=== PATIENT | male | born 1975 | race Hispanic/Latino ===

== ENCOUNTER 2022-04-07 21:49 | Emergency (ER) | payer OTHER ==
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
[2022-04-07] MEDS ORDERED: NA CHLORIDE 0.9% 1,000 ML ONE (22:47)
[2022-04-07 23:03] LABS: Absolute Lymphocytes (CBC) 0.7 K/uL (0.7-4.9); Hematocrit 42.3 % (39.6-49.0); Lymphocytes % 10.6 % (15.3-44.8); MCV 87.1 fL (80-100); MPV 8.3 fL (7.6-11.3); RBC Red Blood Cell Count 4.85 M/uL (4.33-5.43)
[2022-04-07 23:22] LABS: Potassium 3.6 mmol/L (3.5-5.1)
[2022-04-07] MEDS ORDERED: ACETAMINOPHEN 325 MG TABLET ONE (23:33)
--- NOTE | 2022-04-08 00:21 | ER ---
Nurse's Notes [facility] Name: Benjie Eisenberg Age: 46 yrs Sex: Male : 1975 Arrival Date: 04/07/2022 Time: 21:53 Bed 25 Private MD: Diagnosis: Coronavirus infection, unspecified;Infectious mononucleosis, unspecified without complication;Influenza Presentation: 04/07 22:00 Chief complaint: Sore throat, headache, body aches, and fever since this morning. hb Coronavirus screen: Client presents with at least one sign or symptom that may indicate coronavirus-19. Standard/surgical mask placed on the client. Ebola Screen: No symptoms or risks identified at this time. Risk Assessment: Do you want to hurt yourself or someone else? Patient reports no desire to harm self or others. Onset of symptoms was April 07, 2022. 22:00 Method Of Arrival: Ambulatory hb 22:00 Acuity: ELY 3 hb Historical: - Allergies: 22:02 No Known Allergies; hb - Home Meds: 22:02 None [Active]; hb - PMHx: 22:02 None; hb - PSHx: 22:02 None; hb - Immunization history:: Adult Immunizations up to date. - Social history:: Smoking status: Patient denies any tobacco usage or history of. Screenin:11 Abuse screen: Denies threats or abuse. Nutritional screening: No deficits noted. ja4 Tuberculosis screening: No symptoms or risk factors identified. Fall Risk None identified. IV access (20 points). Assessment: 22:15 General: Appears in no apparent distress. uncomfortable, Behavior is calm, cooperative, ja4 appropriate for age. Pain: Denies pain. Neuro: No deficits noted. EENT: Reports pain in throat when swallowing. Derm: Skin is moist, Skin is flushed, Skin temperature is hot. Vital Signs: 22:00 BP 182 / 102; Pulse 105; Resp 20; Temp 101.8; Pulse Ox 97% on R/A; Weight 106.59 kg; hb Height 5 ft. 8 in. (172.72 cm); Pain 8/10; 23:21 BP 159 / 81; Pulse 86; Resp 18; Temp 102.2; Pulse Ox 99% on R/A; ja4 23:55 Temp 101.8(O); ja4 08/21 00:44 Temp 99.8(O); ja4 04/07 22:00 Body Mass Index 35.73 (106.59 kg, 172.72 cm) hb Tonya Coma Score: 04/07 23:11 Eye Response: spontaneous(4). Verbal Response: oriented(5). Motor Response: obeys ja4 commands(6). Total: 15. ED Course: 21:53 Patient arrived in ED. bp1 22:02 Triage completed. hb 22:02 Arm band placed on. hb 22:04 Per Christine PA is PHCP. [facility] 22:04 Lenard Meyer MD is Attending Physician. [facility] 22:04 Ashutosh Ruth, COLLEEN is Primary Nurse. ja4 22:20 Inserted saline lock: 20 gauge in left antecubital area, using aseptic technique. Blood ja4 collected. 22:36 Lactate Sent. ja4 22:37 Blood Culture Adult (2) Sent. ja4 22:37 CBC with Diff Sent. ja4 22:37 BMP Sent. ja4 22:37 [place] Screen Profile Sent. ja4 22:37 Strep Sent. ja4 22:37 Influenza Screen (a \\T\\ B) Sent. ja4 22:37 SARS-COV-2 RT PCR (Document "Date of Onset" if Symptomatic) Sent. ja4 23:11 Patient has correct armband on for positive identification. Call light in reach. Adult ja4 w/ patient. 23:11 No provider procedures requiring assistance completed. ja4 04/08 00:44 IV discontinued, intact, bleeding controlled, No redness/swelling at site. Pressure ja4 dressing applied. Administered Medications: 04/07 22:37 Drug: NS 0.9% 1000 ml Route: IV; Rate: 1 bolus; Site: left antecubital; ja4 23:26 Drug: Tylenol 650 mg Route: PO; ja4 04/08 00:45 Not Given (forgot to give): Tamiflu (oseltamivir) 75 mg PO once ja4 Medication: 04/07 23:11 VIS not applicable for this client. ja4 Outcome: 04/08 00:20 Discharge ordered by . [facility] 00:44 Discharged to home ambulatory. [facility] 00:44 Condition: stable 00:44 Discharge instructions given to patient, Instructed on discharge instructions, follow up and referral plans. medication usage. 00:46 Patient left the ED. ja4 Signatures: Per Christine PA PA jmm Baxter, Heather, RN Erin Loera Jeremy, RN RN enma
--- NOTE | 2022-04-08 00:22 | EDPHYS ---
Physician Documentation [facility] Name: Benjie Eisenberg Age: 46 yrs Sex: Male : 1975 Arrival Date: 04/07/2022 Time: 21:53 Bed 25 Private MD: ED Physician Lenard Meyer HPI: 04/07 22:13 This 46 yrs old Male presents to ER via Ambulatory with complaints of Fever, jmm High Blood Pressure. 22:13 Onset: The symptoms/episode began/occurred gradually, today. Modifying factors: there jmm are no obvious modifying factors. This is a 46-year-old male with no chronic medical conditions the presents emerged department with complaints of body aches and fatigue beginning today. Patient also complains of elevated blood pressure which she noticed yesterday while at a clinic. Denies cough, vomiting, diarrhea.. Historical: - Allergies: 22:02 No Known Allergies; hb - Home Meds: 22:02 None [Active]; hb - PMHx: 22:02 None; hb - PSHx: 22:02 None; hb - Immunization history:: Adult Immunizations up to date. - Social history:: Smoking status: Patient denies any tobacco usage or history of. ROS: 22:13 Cardiovascular: Negative for chest pain, palpitations, and edema, Respiratory: Negative jmm for shortness of breath, cough, wheezing, and pleuritic chest pain, Abdomen/GI: Negative for abdominal pain, nausea, vomiting, diarrhea, and constipation. 22:13 Constitutional: Positive for body aches, chills, fever. 22:13 All other systems are negative. Exam: 22:13 Constitutional: This is a well developed, well nourished patient who is awake, alert, jmm and in no acute distress. Head/Face: atraumatic. Eyes: EOMI, no conjunctival erythema appreciated ENT: Moist Mucus Membranes Neck: Trachea midline, Supple Chest/axilla: Normal chest wall appearance and motion. Cardiovascular: Regular rate and rhythm. No edema appreciated Respiratory: Normal respirations, no respiratory distress appreciated Abdomen/GI: Non distended Back: Normal ROM Skin: General appearance color normal MS/ Extremity: Moves all extremities, no obvious deformities appreciated, no edema noted to the lower extremities Neuro: Awake and alert Psych: Behavior is normal, Mood is normal, Patient is cooperative and pleasant Vital Signs: 22:00 BP 182 / 102; Pulse 105; Resp 20; Temp 101.8; Pulse Ox 97% on R/A; Weight 106.59 kg; hb Height 5 ft. 8 in. (172.72 cm); Pain 8/10; 23:21 BP 159 / 81; Pulse 86; Resp 18; Temp 102.2; Pulse Ox 99% on R/A; ja4 23:55 Temp 101.8(O); ja4 04/08 00:44 Temp 99.8(O); ja4 04/07 22:00 Body Mass Index 35.73 (106.59 kg, 172.72 cm) hb Tonya Coma Score: 04/07 23:11 Eye Response: spontaneous(4). Verbal Response: oriented(5). Motor Response: obeys ja4 commands(6). Total: 15. MDM: 22:13 Patient medically screened. [facility] 04/08 00:19 Data reviewed: vital signs, nurses notes. Counseling: I had a detailed discussion with [facility] the patient and/or guardian regarding: the historical points, exam findings, and any diagnostic results supporting the discharge/admit diagnosis, lab results, radiology results, the need for outpatient follow up, to return to the emergency department if symptoms worsen or persist or if there are any questions or concerns that arise at home. ED course: Patient is alert nontoxic in appearance in the ED. Most likely due to viral syndrome. Advised follow-up PCP and otherwise given strict return precautions. Patient understood and agrees plan of care.. 04/07 22:14 Order name: SARS-COV-2 RT PCR (Document "Date of Onset" if Symptomatic); Complete Time: [facility] 00:02 04/07 22:14 Order name: Influenza Screen (a \\T\\ B); Complete Time: 00:02 [facility] 04/07 22:14 Order name: Strep; Complete Time: 00:02 [facility] 04/07 22:14 Order name: [place] Screen Profile; Complete Time: 00:06 [facility] 04/07 22:15 Order name: CBC with Diff; Complete Time: 23:11 [facility] 04/07 22:15 Order name: BMP; Complete Time: 23:23 [facility] 04/07 22:14 Order name: Saline Lock; Complete Time: 22:37 [facility] 04/07 22:15 Order name: Blood Culture Adult (2) [facility] 04/07 22:15 Order name: Lactate; Complete Time: 23:37 [facility] 04/07 23:53 Order name: Throat Culture EDMS Administered Medications: 04/07 22:37 Drug: NS 0.9% 1000 ml Route: IV; Rate: 1 bolus; Site: left antecubital; ja4 23:26 Drug: Tylenol 650 mg Route: PO; ja4 04/08 00:45 Not Given (forgot to give): Tamiflu (oseltamivir) 75 mg PO once ja4 Disposition: 02:35 Co-signature as Attending Physician, Lenard Meyer MD I agree with the assessment and kdr plan of care. Disposition Summary: 04/08/22 00:20 Discharge Ordered Location: Home [facility] Condition: Stable [facility] Diagnosis - Coronavirus infection, unspecified jmm - Infectious mononucleosis, unspecified without complication jmm - Influenza [facility] Followup: [facility] - With: Private Physician - When: 2 - 3 days - Reason: Recheck today's complaints, Continuance of care, Re-evaluation by your physician Discharge Instructions: - Discharge Summary Sheet jm - Influenza, Adult jmm - Infectious Mononucleosis jm - COVID-19 [facility] Forms: - Medication Reconciliation Form [facility] - Thank You Letter [facility] - Antibiotic Education [facility] - Prescription Opioid Use [facility] Prescriptions: - Tamiflu 75 mg Oral Capsule - take 1 tablet by ORAL route every 12 hours for 5 days; 10 tablet; Refills: 0, [facility] Product Selection Permitted Signatures: Dispatcher [employer] EDMS Lenard Meyer MD MD kdr Mickail, Joel, PA PA [facility] Sherri Gupta, RN RN Ashutosh Ruth RN RN ja4
[2022-04-08 03:21] VITALS: BP 159/81; O2SAT 99
[2022-04-08 03:25] VITALS: TEMP 99.8
== END 2022-04-08 00:46 | disposition home or self-care (01) ==
LOC: ER 21:49
DX: U07.1 COVID-19 (principal); J11.1 Influenza due to unidentified influenza virus with other respiratory manifestations; B27.90 Infectious mononucleosis, unspecified without complication
CPT/HCPCS: 87040 ×2; 87070; 85025; 80048; 36415; 86308; 87081; 83605; 87804 ×2; U0003; J7030; 99283